=== PATIENT | female | born 1985 ===

== ENCOUNTER 2017-01-09 04:14 | Inpatient (IN) | payer OTHER ==
--- NOTE | 2017-01-09 05:48 | PCMAN ---
OB Admission Note - History : 3 Term: 2 : 0 Abortions (S&E): 0 Livin Gestational Age (weeks): 41 Days (#/7): 6 Admit Cervical Dilation:: 5 Admit Cervical Effacement (%):: 60 Admit Station:: -3 Admit Presentaton:: vertex Membrane Status: Intact Labor Onset (Date): 01/06/17 (On and off contractions, most have been very minimally painful) Contractions: Yes Contraction Frequency:: Q10-30 min Heart Rate:: 130 (Initial moderate variability that turned to minimal variability. ) Status:: Category I EFW:: 8.5-9 Summary of Course:: Uncomplicated course. SHALA from [facility] at 24wks. JAIDEN based on 20 wk US - changed date from early scan. Rh neg - received RhoGAM. Hx of macrosomic babies - no hx of GDM or in this . - Labs Blood Type: O (-) negative Rubella Status: Immune GBS Status: Negative Abnormal Labs: None - Review of Systems Denies BUCKLEY, RUQ pain, visual changes. Denies SOB, palpitations, chest pain. Denies nausea,vomiting, diarrhea, heartburn, constipation. Denies dysuria or frequency. Denies vaginal irritation/itching. Has noted mucousy discharge over last few days. No leaking of fluid. No vaginal bleeding. Contractions on and off over the last few days. Most have not been painful. No lower pelvic cramps. Q 10-30 min. No numbness or tingling in extremities. No mental health concerns. Was able to sleep well tonight. Has been hydrating with water. - Physical Exam Psych/Mental Status: Mood/Affect Appropriate Neurological: Grossly Intact HEENT: Atraumatic Lungs: Clear to Auscultation Bilaterally Cardiovascular: Regular Rate and Rhythm Genitourinary: Normal Female Genitalia Rectal Exam: Deferred Extremities: Full ROM Skin: Normal Color, Warm, Dry, Intact - Problems (1) Post term at 41 weeks gestation Status: Acute Code: O48.0Assessment/Plan: A: Latent Labor Reactive NST Sena Score 6 P: Induction of labor at 41w6d. Disc AROM vs Pitocin. Will first try AROM and then pitocin if this is not enough to augment labor. (2) Decreased movement Status: Acute Code: O36.8190Assessment/Plan: A: pt report of decreased movement NST reactive P: NST and cEFM
[2017-01-09] MEDS ORDERED: IV START KIT ONE (06:10)
[2017-01-09] MEDS ORDERED: OXYTOCIN 10 UNITS/ML VIAL ONE (06:11)
[2017-01-09] MEDS ORDERED: LACTATED RINGERS 1,000 ML ONE (06:11)
[2017-01-09] MEDS ORDERED: PUMP TUBING ONE (06:11)
[2017-01-09] MEDS ORDERED: MINERAL OIL 25 ML BOT ONE (06:11)
[2017-01-09] MEDS ORDERED: LIDOCAINE 1% (PRES FREE) 30 ML VIAL ONE (06:11)
[2017-01-09] MEDS ORDERED: OXYTOCIN IN NS 500 ML IV ONE (06:11)
[2017-01-09] MEDS ORDERED: LIDOCAINE Viscous 2% 15 ML UDCUP ONE (06:11)
[2017-01-09] MEDS ORDERED: SODIUM CHLORIDE 0.9% FLUSH 20 ML ONE (06:12)
[2017-01-09] MEDS ORDERED: OXYTOCIN IN NS 334 ML IV PRN (06:14)
[2017-01-09 06:43] LABS: HEMATOCRIT 33.7 % (37.0-47.0); HEMOGLOBIN 10.7 gm/l (12.0-16.0); MEAN CELL VOLUME 78.9 fl (81.0-99.0); MEAN CORPUSCULAR HEMOGLOBIN 25.1 pg (27.0-31.0); MEAN CORPUSCULAR HGB CONC 31.8 g/dl (33.0-37.0); RED CELL DISTRIBUTION WIDTH 16.2 % (11.5-14.5)
--- NOTE | 2017-01-09 09:04 | PDOC36 ---
Provider Note Subject: labor progress note Note: Report received from off going CNM and SNM S: Crystal has been up walking and plans to eat breakfast. She feels occasional contractions but notes they are not painful. O: VE: 5/70/-2, soft, midposition, Bishops Ctx: q5-10min FHT: 125/moderate variability/accels present/decels absent Vitals: BP:119/63, P:84, T:97 A: Postdates at 41w6d Latent Labor Membranes Intact, GBS neg Rh neg P: Reviewed minimal contraction pattern and options for augmentation, AROM or Pitocin. Crystal requests AROM. AROM attempted with no fluid return, likely only ruptured external layer of amniotic sac. Will give 1-2 hrs of active, upright, movement, if no fluid, then will re-attempt AROM.
--- NOTE | 2017-01-09 09:42 | PDOC36 ---
Provider Note Subject: AROM for thin mec Note: AROM for moderate fluid, thin mec. Tolerated well by Crystal newton 10-15min prior to AROM, mild post AROM - FHT: 140/moderate/accels present/decels absent Cat. I
[2017-01-09] MEDS ORDERED: MISOPROSTOL 200 MCG TABLET PO ONE (14:17)
[2017-01-09] MEDS ORDERED: BLISTEX LIPSTICK 1 EACH TP PRN ×2 (15:14→15:25)
[2017-01-09] MEDS ORDERED: LIDOCAINE 1% (PRES FREE) 30 ML VIAL IT ONE (16:43)
--- NOTE | 2017-01-09 17:35 | PCMDEL ---
Delivery Note - Labor 1st stage (hr/min):: 1h30m 2nd stage (hr/min):: 0h28m 3rd stage (hr/min):: 08m Total (hr/min):: 2h6m Pushed (hr/min):: 0h10m - Delivery Delivery (Date): 01/09/17 Delivery (Time): 16:28 Gender: Male Weight: 8 lb 11 oz Presentation: Cephalic Position: OA Umbilical Cord: 3 Vessel Delayed Cord Clamping:: > 3 min 1 Minute Total: 9 5 Minute Total: 9 Placenta:: Spontaneous, trish, intact EBL:: 300 Perineum:: 1st degree perineal lac repaired Suture:: 3-0 vicryl Anesthesia/Meds:: none, local lidocaine for repair Length ROM:: 6h59m Comments:: Following AROM augmentation, Crystal made steady progress to complete and pushed spontaneously to achieve of vigorous male infant with compound right arm, OA to JESSICA, easy delivery of the shoulders, and placed directly on maternal abdomen for skin to skin bonding and drying. AMTSL with IV pitocin initiated. Delayed cord clamping until cessation of pulse and cut by FOB. Cord blood collected. Spontaneous delivery of intact trish placenta, 3vc. Fundus found to br firm midline at U. 1st degree perineal laceration noted and repaired to approximation and hemostasis. Fundus rechecked d/t hx of PPH x 2 and no atony noted. Hemostasis achieved & maintained. QBL 300ml. Mom and baby in stable condition.
[2017-01-09] MEDS ORDERED: LANOLIN 50 APPLIC/7G TUBE TP PRN (17:52)
[2017-01-09] MEDS ORDERED: ACETAMINOPHEN 325 MG TABLET PO PRN (17:52)
[2017-01-09] MEDS ORDERED: CALCIUM CARBONATE 500 MG TAB.CHEW PO PRN (17:52)
[2017-01-09] MEDS ORDERED: HYDROCODONE/ACETAMINOPHEN 5/325MG TABLET PO PRN (17:52)
[2017-01-09] MEDS ORDERED: MAGNESIUM HYDROXIDE 30 ML UDCUP PO PRN (17:52)
[2017-01-09] MEDS ORDERED: DOCUSATE SODIUM 100 MG CAPSULE PO PRN (17:52)
[2017-01-09] MEDS ORDERED: BENZOCAINE/MENTHOL 60 APPLIC/BOT TP PRN (17:52)
[2017-01-09] MEDS: IBUPROFEN 800 MG TABLET PO SCH (19:01)
[2017-01-09] MEDS ORDERED: RHOGAM 300 MCG SYRINGE IV ONE (22:31)
[2017-01-10 06:41] LABS: HEMATOCRIT 29.3 % (37.0-47.0); HEMOGLOBIN 8.9 gm/l (12.0-16.0)
[2017-01-10] MEDS: IBUPROFEN 800 MG TABLET PO SCH ×3 (10:11→18:02)
--- NOTE | 2017-01-10 12:33 | PDOC39B ---
Hospital Course: ADMIT DATE: 01/09/17 DISCHARGE DATE: 01/10/17 ADMISSION DIAGNOSES: Active Labor PROCEDURES: HISTORY OF PRESENT ILLNESS: 31 year old G3 T2 L2 at 41 weeks 6 days presenting with active labor. HOSPITAL COURSE: The patient is doing well and requesting to go home. She has minimal lochia with moderate cramping. Taking Ibuprofen with good effect. Eating , drinking and voiding. is going well. By day of discharge the patient is stable, well and ready to go home. - Physical Exam Vital Signs: Temp Pulse Resp BP Pulse Ox 97.5 F 85 16 122/62 01/10/17 08:25 01/10/17 08:25 01/10/17 08:25 01/10/17 08:25 General: Afebrile Psych/Mental Status: Mood/Affect Appropriate Neurological: Grossly Intact Breast: Soft Fundus: Firm Genitourinary: Normal Female Genitalia Lochia: Light Extremities: Full ROM Skin: Normal Color, Warm - Discharge Diagnosis (1) Normal course Status: AcuteAssessment/Plan: A/ Day 1 s/p vaginal Breast feeding P/ D/C Home today with the baby closer to 24 hours old F/U with Iza Diaz Planning on Vasectomy - Discharge Plan Condition: Good Disposition: Home Additional Instructions: Midwifery 'After the ' handout given to patient. Prescriptions: Ibuprofen [Motrin] 800 mg PO Q8H PRN #120 tablet PRN Reason: Pain Follow-Up: Iza Goodwin CNM [Primary Care Provider] - In 2 weeks
[2017-01-10 20:47] VITALS: BP 112/68
== END 2017-01-10 20:49 | disposition home or self-care (01) | DRG 775 ==
LOC: FBCOUT 04:14 → FBC 04:14 → FBCOUT 05:26 → FBC 05:27 → UNDOFXCLIACCOM 05:27
PROVIDERS: ADMIT Advanced Practice Midwife; ATTEND Advanced Practice Midwife
PROC: 10E0XZZ Delivery of Products of Conception, External Approach (ICD-10-PCS; principal; 2017-01-09)
PROC: 10907ZC Drainage of Amniotic Fluid, Therapeutic from Products of Conception, Via Natural or Artificial Opening (ICD-10-PCS; 2017-01-09)
PROC: 0HQ9XZZ Repair Perineum Skin, External Approach (ICD-10-PCS; 2017-01-09)
DX: O48.0 Post-term pregnancy (principal); Z3A.41 41 weeks gestation of pregnancy; Z37.0 Single live birth; O62.1 Secondary uterine inertia; O36.8130 Decreased fetal movements, third trimester, not applicable or unspecified; O77.0 Labor and delivery complicated by meconium in amniotic fluid; O70.0 First degree perineal laceration during delivery